=== PATIENT | male | born 1990 | race Caucasian/White ===

== ENCOUNTER 2022-10-05 08:25 | Inpatient (IN) | payer OTHER ==
[2022-10-05] MEDS ORDERED: Sodium Chloride 0.9% 2.5 ML Syringe FLUSH PRN (09:45)
[2022-10-05] MEDS ORDERED: Sodium Chloride 0.9% 10 ML Syringe FLUSH PRN (09:45)
[2022-10-05] MEDS ORDERED: Sodium Chloride 0.9% 1,000 ML IV ONE (09:45)
[2022-10-05] MEDS ORDERED: ceFAZolin 2 GM in Premix Bag 1 BAG IV ONE (09:47)
[2022-10-05] MEDS ORDERED: ceFAZolin 2 GM in Sodium Chloride 0.9% 50 ML IV ONE (10:15)
[2022-10-05 10:44] LABS: CARBON DIOXIDE,CO2 26.9 mmol/L (21.0-32.0); POTASSIUM,K 4.1 mmol/L (3.5-5.1)
[2022-10-05] MEDS ORDERED: fentaNYL 50 MCG/ML SDV IVPUSH ONE (11:12)
[2022-10-05] MEDS ORDERED: Ondansetron 4 MG/2 ML SDV IVPUSH ONE (11:12)
[2022-10-05] MEDS ORDERED: Ketorolac 30 MG/ML SDV IVPUSH ONE (11:12)
[2022-10-05] MEDS ORDERED: VANCOmycin 1.75 GM/350 ML 1.75 GM in Premix Bag 1 BAG IV ONE (13:30)
[2022-10-05] MEDS ORDERED: Acetaminophen 325 MG Tab PO PRN (13:43)
[2022-10-05] MEDS ORDERED: Ibuprofen 400 MG Tab PO PRN (13:43)
[2022-10-05] MEDS ORDERED: Morphine 2 MG/ML SYRINGE IVPUSH PRN (13:43)
[2022-10-05 14:03] LABS: CORONAVIRUS COVID-19 NAA NEGATIVE (NEGATIVE); INFLUENZA A NAA NEGATIVE (NEGATIVE); INFLUENZA B NAA NEGATIVE (NEGATIVE)
[2022-10-05] MEDS ORDERED: cefTRIAXone 1 GM in Sodium Chloride 0.9% 50 ML IV SCH (18:00)
[2022-10-05] MEDS: Piperacillin/Tazobactam 3.375 GM in Sodium Chloride 0.9% 50 ML IV SCH (22:57)
[2022-10-05] MEDS: oxyCODONE 5 MG Tab PO PRN (23:01)
[2022-10-06] MEDS: Piperacillin/Tazobactam 3.375 GM in Sodium Chloride 0.9% 50 ML IV SCH ×4 (05:14→23:11)
[2022-10-06 06:19] LABS: CARBON DIOXIDE,CO2 22.9 mmol/L (21.0-32.0); POTASSIUM,K 4.1 mmol/L (3.5-5.1)
[2022-10-06] MEDS: oxyCODONE 5 MG Tab PO PRN ×2 (09:07→23:07)
[2022-10-06] MEDS ORDERED: Sodium Chloride 0.9% 2.5 ML Syringe FLUSH PRN (11:33)
[2022-10-06] MEDS ORDERED: Sodium Chloride 0.9% 10 ML Syringe FLUSH PRN (11:33)
[2022-10-06] MEDS: Enoxaparin 40 MG/0.4 ML Syringe SUBCUT SCH (12:31)
[2022-10-07] MEDS: Piperacillin/Tazobactam 3.375 GM in Sodium Chloride 0.9% 50 ML IV SCH ×4 (04:58→22:30)
[2022-10-07 06:16] LABS: CARBON DIOXIDE,CO2 24.6 mmol/L (21.0-32.0); POTASSIUM,K 4.2 mmol/L (3.5-5.1)
[2022-10-07] MEDS: Enoxaparin 40 MG/0.4 ML Syringe SUBCUT SCH (10:48)
[2022-10-07] MEDS: valACYclovir 500 MG Tab PO SCH ×2 (13:39→22:30)
[2022-10-07] MEDS: oxyCODONE 5 MG Tab PO PRN (22:30)
[2022-10-08] MEDS: Piperacillin/Tazobactam 3.375 GM in Sodium Chloride 0.9% 50 ML IV SCH ×4 (04:32→22:14)
[2022-10-08] MEDS: oxyCODONE 5 MG Tab PO PRN (08:04)
[2022-10-08] MEDS: Enoxaparin 40 MG/0.4 ML Syringe SUBCUT SCH (12:05)
[2022-10-09] MEDS: Piperacillin/Tazobactam 3.375 GM in Sodium Chloride 0.9% 50 ML IV SCH (04:05)
[2022-10-09 06:47] LABS: CARBON DIOXIDE,CO2 24.7 mmol/L (21.0-32.0); POTASSIUM,K 4.4 mmol/L (3.5-5.1)
[2022-10-09] MEDS ORDERED: Cephalexin 500 MG Cap PO SCH (10:00)
== END 2022-10-09 10:52 | disposition home or self-care (01) | DRG 603 ==
LOC: MW.ED 08:25 → MW.MS 13:16
PROVIDERS: ADMIT Internal Medicine; ATTEND Internal Medicine
DX: L03.114 Cellulitis of left upper limb (principal); R78.81 Bacteremia; Z20.822 Contact with and (suspected) exposure to COVID-19; Z79.1 Long term (current) use of non-steroidal anti-inflammatories (NSAID); Z79.2 Long term (current) use of antibiotics; Z79.899 Other long term (current) drug therapy; W00.0XXA Fall on same level due to ice and snow, initial encounter; Y92.89 Other specified places as the place of occurrence of the external cause
CPT/HCPCS: 0240U; 36415; 73080-26-LT; 73080-LT; 73200-26-LT; 73200-LT; 80048; 80053; 80202; 80305-QW; 81001; 83605; 83735; 84145; 85025; 85652; 86140; 87040; 87070; 87077; 87186; 87205; 93971-26-LT; 93971-LT; 96361; 96365; 96375; 99221; 99231; 99232; 99238; 99284; 99285-25; A9270-GY; J0690; J0696; J1650; J1885; J2270; J2405; J2543; J3010; J3370; J3490; J7030; J7050